=== PATIENT | male | born 1990 | race Two or more races ===

== ENCOUNTER 2025-05-18 11:37 | Emergency (ER) | payer SELFPAY ==
[~2025-05-18] VITALS: Ht 170.2 cm; Wt 75.0 kg
[2025-05-18 11:48] VITALS: O2SAT 98
[2025-05-18 13:33] VITALS: BP 122/63; PULSE 77; RESP 15; TEMP 37; O2SAT 98
== END 2025-05-18 13:51 | disposition home or self-care (01) ==
LOC: ER 11:37
DX: T59.3X3A Toxic effect of lacrimogenic gas, assault, initial encounter (principal); Z02.89 Encounter for other administrative examinations; Z79.899 Other long term (current) drug therapy; Y92.89 Other specified places as the place of occurrence of the external cause
CPT/HCPCS: 82962; 99283